=== PATIENT | male | born 1945 | race Caucasian/White ===

== ENCOUNTER → 2018-07-30 | Day surgery (SDC) | payer MEDICARE, OTHER ==
[2018-07-16 13:59] LABS: BASOPHILS % 0.2 % (0.0-1.0); EOSINOPHILS % 0.3 % (0.0-6.0); HEMATOCRIT 36.9 % (38.2-49.6); HEMOGLOBIN 12.3 g/dL (14.0-18.0); LYMPHOCYTES % 21.4 % (18.0-39.1); MEAN CORPUSCULAR HEMOGLOBIN 29.6 pg (28-32); MEAN CORPUSCULAR HGB CONC 33.3 g/dL (31-35); MEAN CORPUSCULAR VOLUME 88.7 fL (81-99); MONOCYTES # (AUTO) 0.6 (0.2-0.8); MONOCYTES % 6.3 % (4.4-11.3); NEUTROPHILS # (AUTO) 6.7 (2.1-6.9); NEUTROPHILS % 71.4 % (38.7-80.0); PLATELET COUNT 446 x10e3/uL (140-360); RED BLOOD COUNT 4.16 x10e6/uL (4.3-5.7); RED CELL DISTRIBUTION WIDTH 12.8 % (11.7-14.4)
[~2018-07-30] MED LIST: AMLODIPINE BESYL5 MG PO; ASPIRIN325 MG PO; CLONAZEPAM1 MG PO; FLOMAX0.4 MG PO; LIDOCAINE HCL 2% LOCAL INJ 5 ML SDV VIAL INJ ONE; MICARDIS80 MG PO; MIDAZOLAM HCL 2 MG/2 ML VIAL ONE; PROPOFOL IV EMULSION 10 MG/ML 50 ML VIAL ONE; SUPERBETA PROSTATE PO; ULTRAM50 MG PO
--- OUTSIDE RECORDS SUMMARY | 2018-07-30 09:48 | XMS REPORT | Clinical Summary ---
Author Author [facility] Organization [facility] Address Unknown Phone Unavailable Care Team Providers Care Neurology Tech Name Role Phone Anali Parker PCP Allergies Comments Active Allergy Reactions Severity Noted Date Per patient: "It makes me crazy. I am okay to take it in the hospital but not at home". Morphine Other (See 05/06/2018 Comments) Medications End Date Status Medication Sig Dispensed Refills Start Date Active amLODIPine (NORVASC) 5 mg nightly. 0 tablet 9 Active clonAZEPAM (KlonoPIN) 2 nightly as 0 MG tablet needed. 9 Active tamsulosin (FLOMAX) 0.4 0 mg capsule 9 Active telmisartan (MICARDIS) 80 telmisartan 0 MG tablet 80 mg tablet Active traMADol 100 mg tramadol ER 0 capsule,ER biphase 24 hr 100 mg 25-75 capsule 24h,extended release(25-75 ) Take 1 capsule twice a day by oral route for 90 days. Active multivitamin (THERAGRAN) Take 1 tablet 0 tablet by mouth daily. Gummie vitamins 07/10/2018 Discontinued naproxen (NAPROSYN) 125 naproxen 0 mg/5 mL suspension TAKE 2 IN AM AND 2 IN PM 07/19/2018 aspirin (ECOTRIN) 325 MG Take 1 tablet 60 tablet 0 enteric coated tablet (325 mg 9 total) by mouth 2 (two) times a day for 30 days. 06/26/2018 HYDROcodone-acetaminophen Take 1 tablet 28 tablet 0 (NORCO) 10-325 mg per by mouth 9 tablet every 6 (six) hours as needed for moderate pain (pain) for up to 7 days. Max Daily Amount: 4 tablets 07/24/2018 HYDROcodone-acetaminophen Take 1 tablet 28 tablet 0 (NORCO) 10-325 mg per by mouth 9 tabletIndications: Status every 6 (six) post total replacement of hours as right hip needed for moderate pain for up to 7 days. Max Daily Amount: 4 tablets Active Problems Problem Noted Date Intertrochanteric fracture of femur, sequela (s/p ORIF x 2) 06/18/2018 Status post total replacement of right hip (conversion ORIF to LENIN - 06/18/2018 Complex) 06/18/18 Mixed hyperlipidemia 03/16/2018 Essential hypertension 03/16/2018 Benign prostatic hyperplasia 03/16/2018 Anxiety 03/16/2018 Adjustment disorder with anxious mood 03/16/2018 Encounters Care Team Description Date Type Specialty Michaela Hobbs, ALEXEY Status post total replacement of right hip (conversion ORIF to LENIN - Complex) 06/18/18 (Primary Dx) 07/16/2018 Refill Orthopedic Surgery Dioni Dior II, MD Status post total replacement of right hip (conversion ORIF to LENIN - Complex) 06/18/18 (Primary Dx); Intertrochanteric fracture of femur, sequela (s/p ORIF x 2); Aftercare following right hip joint replacement surgery 07/10/2018 Office Visit Orthopedic Surgery Dioni Dior II, MD Intertrochanteric fracture of femur, sequela (s/p ORIF x 2) (Primary Dx); Status post total replacement of right hip (conversion ORIF to LENIN - Complex) 06/18/18 06/23/2018 Office Visit Orthopedic Surgery Michaela Hobbs RN 06/23/2018 Telephone Orthopedic Surgery Dioni Dior II, MD REVISION RIGHT TOTAL HIP ARTHROPLASTY POSTERIOR, REMOVAL OF HARDWARE 06/18/2018 Surgery Orthopedic Surgery Sarah Lazo, MARCELLO 06/18/2018 Anesthesia Orthopedic Surgery Event Dioni Dior II, MD Painful orthopaedic hardware (HCC) 06/18/2018 Hospital Orthopedic Surgery - Encounter 06/19/2018 Sarah Lazo, MARCELLO 06/16/2018 Anesthesia Pre-Admission Testing Event Dioni Dior II, MD Preop testing (Primary Dx) 06/02/2018 Pre-Admit Pre-Admission Testing Testing Appointment Dioni Dior II, MD Right hip pain (Primary Dx) 05/06/2018 Lab Lab Dioni Dior II, MD Right hip pain (Primary Dx); Closed 2-part intertrochanteric fracture of proximal femur, right, sequela; Post-traumatic osteoarthritis of right hip 05/06/2018 Office Visit Orthopedic Surgery after 07/29/2017 Family History Medical History Relation Name Comments Cancer Father Diabetes Mother Relation Name Status Comments Father Mother Social History Date Tobacco Use Types Packs/Day Years Used Former Smoker Cigarettes, 1 3 Cigars Smokeless Tobacco: Former User Comments: Quit cigarettes 1974, quit cigars 1993. Alcohol Use Drinks/Week oz/Week Comments Yes 1 Standard 0.6 drinks or equivalent Alcohol Habits Answer Date Recorded How often do you have a drink containing alcohol? Never 05/06/2018 How many drinks containing alcohol do you have on Not asked a typical day when you are drinking? How often do you have six or more drinks on one Not asked occasion? Sex Assigned at Date Recorded Not on file Industry Job Start Date Occupation Not on file Not on file Not on file Travel End Travel History Travel Start No recent travel history available. Last Filed Vital Signs Time Taken Vital Sign Reading 06/19/2018 11:44 AM CDT Blood Pressure 122/67 06/19/2018 11:44 AM CDT Pulse 85 06/19/2018 11:44 AM CDT Temperature 37.1 C (98.7 F) 06/19/2018 11:44 AM CDT Respiratory Rate 18 06/19/2018 11:44 AM CDT Oxygen Saturation 95% - Inhaled Oxygen - Concentration 06/18/2018 9:00 PM CDT Weight 95.3 kg (210 lb) 06/18/2018 9:00 PM CDT Height 182.9 cm (6') 06/18/2018 9:00 PM CDT Body Mass Index 28.48 Plan of Treatment Care Team Description Date Type Specialty Barby, Dioni Madison II, MD [address] [facility] [address] [place] [address] 08/10/2018 Office Visit Orthopedic Surgery Health Maintenance Due Date Last Done Comments COLON CANCER SCREENING 1996 SHINGLES VACCINES (#1) 1996 65+ PNEUMOCOCCAL VACCINE 11/24/2011 (1 of 2 - PCV13) PNEUMOCOCCAL 11/24/2011 POLYSACCHARIDE VACCINE AGE 65 AND OVER INFLUENZA VACCINE 10/01/2018 Implants Device Identifier Shelf Expiration Date Model / Serial / Lot Implanted Type Area Manufactur er 04/02/2028 [id number] / / [id number] Shell Actblr Sector Series W/ Hip Joint Right: Hip DEPUY Gripton 56mm [place] - [id number] Implants ORTHO-KNEE Implanted: Qty: 1 on 06/18/2018 by Dioni Greco II, MD 01/30/2021 [id number] / / [id number] Head Fml Neck 02/13 Tprd Mtl 36mm Hip Joint Right: Hip DEPUY -2 Articul/Smith Ultamet - [id number] Implants ORTHO Implanted: Qty: 1 on 06/18/2018 by Dioni Dior II, MD 05/01/2023 [id number] / / [id number] Altrx Neut [id number] - [id number] IPM Right: Hip DEPUY Implanted: Qty: 1 on 06/18/2018 by IMPLANT ORTHOPAEDI Dioni Dior II, MD DEVICES 36Kr, [employer] 10/31/2018 [id number] / / [id number] Corail Revision Stem Std 12 - IPM Right: Hip DEPUY [id number] IMPLANT ORTHOPAEDI Implanted: Qty: 1 on 06/18/2018 by [employer] Dioni Dior II, MD Procedures Comments Procedure Name Priority Date/Time Associated Diagnosis XR HIP 2-3 VIEWS RIGHT Routine 07/10/2018 Status post total 12:08 PM CDT replacement of right hip Intertrochanteric fracture of femur, sequela Aftercare following right hip joint replacement surgery XR HIP 2-3 VIEWS RIGHT Routine 06/23/2018 Intertrochanteric 1:37 PM CDT fracture of femur, sequela Status post total replacement of right hip HEMOGLOBIN & HEMATOCRIT Routine 06/19/2018 8:16 AM CDT ESTIMATED GFR Routine 06/19/2018 4:00 AM CDT BASIC METABOLIC PANEL Routine 06/19/2018 4:00 AM CDT XR PELVIS 1 OR 2 VW Routine 06/18/2018 4:37 PM CDT POC GLUCOSE Routine 06/18/2018 4:09 PM CDT SURGICAL PATHOLOGY Routine 06/18/2018 REQUEST 3:31 PM CDT XR PELVIS 1 OR 2 VW Routine 06/18/2018 3:00 PM CDT XR PELVIS 1 OR 2 VW Routine 06/18/2018 2:45 PM CDT AFB STAIN Timed 06/18/2018 1:30 PM CDT GRAM STAIN Timed 06/18/2018 1:30 PM CDT FUNGUS SMEAR Timed 06/18/2018 1:30 PM CDT AFB CULTURE Timed 06/18/2018 Painful orthopaedic 1:30 PM CDT hardware (HCC) AEROBIC CULTURE Timed 06/18/2018 Painful orthopaedic 1:30 PM CDT hardware (HCC) FUNGUS CULTURE Timed 06/18/2018 Painful orthopaedic 1:30 PM CDT hardware (HCC) ANAEROBIC CULTURE Timed 06/18/2018 Painful orthopaedic 1:30 PM CDT hardware (HCC) AFB STAIN Timed 06/18/2018 1:03 PM CDT GRAM STAIN Timed 06/18/2018 1:03 PM CDT FUNGUS SMEAR Timed 06/18/2018 1:03 PM CDT AFB CULTURE Timed 06/18/2018 Painful orthopaedic 1:03 PM CDT hardware (HCC) AEROBIC CULTURE Timed 06/18/2018 Painful orthopaedic 1:03 PM CDT hardware (HCC) FUNGUS CULTURE Timed 06/18/2018 Painful orthopaedic 1:03 PM CDT hardware (HCC) ANAEROBIC CULTURE Timed 06/18/2018 Painful orthopaedic 1:03 PM CDT hardware (HCC) SC AN ELECTIVE Routine 06/18/2018 ENDOTRACHEAL AIRWAY 12:31 PM CDT Procedure Note - Akua Colin CRNA - 06/18/2018 12:31 PM CDT Airway Date/Time: 06/18/2018 12:32 PM Performed by: Akua Colin CRNA Authorized by: Briana Black MD Location: OR Urgency: Elective Difficult Airway: No Preoxygena maricruz with 100% O2: Yes C-spine Precaution s Maintained Throughout : Yes Mask Ventilatio n: Easy mask Final Airway Type: Endotrache al airway Final Endotrache al Airway: ETT Cuffed: Yes Technique Used: Video laryngosco py Devices/Me thods Used in Placement: Intubatin g stylet Insertion Site: Oral Blade Type: Evelin Laryngosco pe Blade/Vide olaryngosc ope Blade Size: 3 ETT Size (mm): 8.0 Cuff at minimum occlusion pressure: Yes Measured from: Teeth ETT to Teeth (cm): 24 Placement Verified by: CO2 detection, direct visualizat ion and equal breath sounds Laryngosco pic view: Grade I - full view of glottis Rapid Sequence Induction (RSI): No Modified RSI: No Number of Attempts at Approach: 1 EASY. ATRAUMATIC EASY GLIDSCOPE REVISION, ARTHROPLASTY, 06/18/2018 Painful orthopaedic HIP 12:30 PM CDT hardware (HCC) Case Notes @0860 VIA EMAIL/ANTOINETTE E R/S FROM 06/04 TO 06/18- 03/21TW Special Needs EST 2HRS, DEPUY POC GLUCOSE Routine 06/18/2018 8:21 AM CDT URINALYSIS SCREEN AND Routine 06/02/2018 Preop testing MICROSCOPY, WITH REFLEX 2:35 PM CDT TO CULTURE URINE CULTURE Routine 06/02/2018 2:35 PM CDT TYPE AND SCREEN Routine 06/02/2018 Preop testing 1:45 PM CDT ESTIMATED GFR Routine 06/02/2018 1:42 PM CDT HEMOGLOBIN A1C Routine 06/02/2018 Preop testing 1:42 PM CDT CBC HEMOGRAM Routine 06/02/2018 Preop testing 1:42 PM CDT COMPREHENSIVE METABOLIC Routine 06/02/2018 Preop testing PANEL 1:42 PM CDT SEDIMENTATION RATE Routine 05/06/2018 Right hip pain 4:10 PM CHEF MANAGER C-REACTIVE PROTEIN Routine 05/06/2018 Right hip pain 4:10 PM CHEF MANAGER XR HIP 2-3 VIEWS RIGHT Routine 05/06/2018 Right hip pain 2:53 PM CHEF MANAGER after 07/29/2017 Results * XR Hip 2-3 View Right (07/10/2018 12:08 PM CDT) Only the most recent of 3 results within the time period is included. Specimen Narrative Performed At This [facility] has an attachment that is not available. [facility] Revision lenin in unchanged position. Performing Organization Address [facility] Phone Number [facility] [address] [place] [address] * Hemoglobin & hematocrit (06/19/2018 8:16 AM CDT) [facility] HGB 12.2 (L) 14.0 - 18.0 g/dL [facility] HCT 37.0 (L) 41.0 - 51.0 % [facility] Specimen Blood Performing Organization Address [facility] Phone Number [facility] DEPARTMENT OF [address] [place] [id number] PATHOLOGY AND GENOMIC MEDICINE [address] * Estimated GFR (06/19/2018 4:00 AM CDT) Only the most recent of 2 results within the time period is included. [facility] Estimated GFR >=90 mL/min/1.73 m2 LYLES Comment: [facility] rpretation G1 >=90 Normal or high G2 60-89Mildly decreased A6c34-14 Mildly to moderately decreased D1p58-71 Moderately to severely decreased G4 15-29Severely decreased G5 <15Kidney failure The eGFR was calculated using the Chronic Kidney Disease Epidemiology Collaboration (CKD-EPI) equation. Interpretation is based on recommendations of the National Kidney Foundation-Kidney Disease Outcomes Quality Initiative (NKF-KDOQI) published in 2014. Specimen Plasma specimen Performing Organization Address City/[facility] Phone Number [facility] DEPARTMENT OF [address] [place] [address] PATHOLOGY AND GENOMIC MEDICINE [address] * Basic metabolic panel (06/19/2018 4:00 AM CDT) Sodium 136 135 - 148 mEq/L [facility] Potassium 4.5 3.5 - 5.0 mEq/L [facility] Chloride 100 98 - 112 mEq/L [facility] CO2 22 (L) 24 - 31 mEq/L [facility] Anion gap 14@ANIO 7 - 15 mEq/L [facility] BUN 12 8 - 23 mg/dL [facility] Creatinine 0.76 0.70 - 1.20 mg/dL [facility] Glucose 109 (H) 65 - 99 mg/dL [facility] Calcium 8.7 (L) 8.8 - 10.2 mg/dL [facility] Specimen Plasma specimen Performing Organization Address City/[facility] Phone Number [facility] DEPARTMENT OF [address] [place] [address] PATHOLOGY AND GENOMIC MEDICINE [address] * XR Pelvis 1 Or 2 Vw (06/18/2018 4:37 PM CDT) Only the most recent of 3 results within the time period is included. Specimen Narrative Performed At EXAMINATION:XR PELVIS 1 OR 2 [facility]W [facility] CL[facility]:Post operative COMPARISON:None. IMPRESSION: Patient is status post right hip arthroplasty. Hardware intact. The appearance of the lesser trochanter is unchanged from May 06, 2018 Expected postoperative changes in the soft tissues. [facility]-[id number] Procedure Note Interface, Radiology Results Incoming - 06/18/2018 5:05 PM CDT EXAMINATION: XR PELVIS 1 OR 2 VW CLINICAL HISTORY: Post operative COMPARISON: None. IMPRESSION: Patient is status post right hip arthroplasty. Hardware intact. The appearance of the lesser trochanter is unchanged from May 06, 2018 Expected postoperative changes in the soft tissues. [facility]-[id number] Performing Organization Address City/State/[place] [address] * POC glucose (06/18/2018 4:09 PM CDT) Only the most recent of 2 results within the time period is included. POC glucose 112 (H) 65 - 99 mg/dL LYLES Comment: [facility] Notified RN HOSPITAL Meter ID: [id number] Wheel Roller: Joe Sebastian Specimen Performing Organization Address City/[facility]/Zipcode Phone Number [facility] DEPARTMENT OF [address] [place] [address] PATHOLOGY AND GENOMIC MEDICINE [place] [facility] * Surgical pathology request (06/18/2018 3:31 PM CDT) [facility] DEPARTMENT OF PATHOLOGY AND GENOMIC MEDICINE Surgical See link below for PDF Lab [facility] DEPARTMENT pathology Report OF PATHOLOGY report AND GENOMIC MEDICINE Result status This is Final Report for [facility] DEPARTMENT [id number] OF PATHOLOGY AND GENOMIC MEDICINE Specimen Performing Organization Address City/[facility] Phone Number [facility] DEPARTMENT OF [address] [place] [address] PATHOLOGY AND GENOMIC MEDICINE * Fungus smear (06/18/2018 1:30 PM CDT) Only the most recent of 2 results within the time period is included. Fungus smear No fungi observed. LYLES Comment: [facility] Specimen Information HOSPITAL Specimen Source: Fluid Specimen Site: Hip Specimen Hip Performing Organization Address City/[facility] Phone Number [facility] DEPARTMENT OF [address] [place] [address] PATHOLOGY AND GENOMIC MEDICINE [place] [facility] [address] [place] [address] HOSPITAL * Aerobic culture (06/18/2018 1:30 PM CDT) Only the most recent of 2 results within the time period is included. Aerobic culture No growth after 72 hours LYLES isolate Comment: [facility] Specimen Information HOSPITAL Specimen Source: Fluid Specimen Site: Hip Specimen Fluid - Hip Performing Organization Address City/[facility]/Zipcode Phone Number [facility] DEPARTMENT OF [address] [place] [address] PATHOLOGY AND GENOMIC MEDICINE [place] [address] HOSPITAL * Gram stain (06/18/2018 1:30 PM CDT) Only the most recent of 2 results within the time period is included. Gram stain Moderate WBC's LYLES isolate No organisms seen [facility] Comment: HOSPITAL Specimen Information Specimen Source: Fluid Specimen Site: Hip Specimen Hip Performing Organization Address City/[facility]/Zipcode Phone Number [facility] DEPARTMENT OF [address] [place] [address] PATHOLOGY AND GENOMIC MEDICINE [address] * AFB stain (06/18/2018 1:30 PM CDT) Only the most recent of 2 results within the time period is included. Pathologist [facility] AFB stain No acid fast bacilli (AFB) LYLES seen. [facility] Comment: HOSPITAL Specimen Information Specimen Source: Fluid Specimen Site: Hip Specimen Hip Performing Organization Address [facility] Phone Number [facility] [place] [address] PATHOLOGY AND GENOMIC MEDICINE [address] * Fungus culture (06/18/2018 1:30 PM CDT) Only the most recent of 2 results within the time period is included. Pathologist [facility] Fungus culture No growth after 4 weeks of LYLES isolate incubation. [facility] Comment: HOSPITAL Specimen Information Specimen Source: Fluid Specimen Site: Hip Specimen Fluid - Hip Performing Organization Address [facility] Phone Number [facility] [place] [address] PATHOLOGY AND GENOMIC MEDICINE [address] * Anaerobic culture (06/18/2018 1:30 PM CDT) Only the most recent of 2 results within the time period is included. Pathologist [facility] Anaerobic No anaerobic organisms LYLES culture isolate isolated. [facility] Comment: HOSPITAL Specimen Information Specimen Source: Fluid Specimen Site: Hip Specimen Fluid - Hip Performing Organization Address [facility] Phone Number [facility] [place] [address] PATHOLOGY AND GENOMIC MEDICINE [address] * Urinalysis screen and microscopy, with reflex to culture (06/02/2018 2:35 PM CDT) Specimen site Clean catch [facility] Color, UA Yellow [facility] Appearance, UA Clear [facility] Specific 1.027 1.001 - 1.035 LYLES gravity, [facility] pH, UA 6.0 5.0 - 8.5 [facility] Protein, UA Negative Negative [facility] Glucose, UA Negative Negative [facility] Ketones, UA Negative Negative [facility] Bilirubin, UA Negative Negative [facility] Blood, UA Negative Negative [facility] Nitrite, UA Negative Negative [facility] Urobilinogen, Footnote <2.0 LYLES UA Comment: [facility] UNABLE TO REPORT HOSPITAL Corrected result; previously reported as 2.0 on 06/02/2018 at 17:31 by I/AUT Leukocyte Negative Negative LYLES esterase, UA [facility] WBC, UA None seen 0 - 1 /HPF [facility] RBC, UA 3 0 - 5 /HPF [facility] Bacteria, UA Few None seen [facility] Yeast, UA None seen [facility] Yeast with None seen [facility] Specimen Urine Performing Organization Address City/[facility] Phone Number [facility] [place] [address] PATHOLOGY AND GENOMIC MEDICINE [address] * Urine culture (06/02/2018 2:35 PM CDT) Pathologist [facility] Urine culture SEE COMMENTComment: LYLES Bacteriuria screen negative. [facility] Specimen Performing Organization Address City/[facility] Phone Number [facility] [place] [address] PATHOLOGY AND GENOMIC MEDICINE [address] * Type and screen (06/02/2018 1:45 PM CDT) ABO grouping O [facility] Rh type POS [facility] Antibody screen NEG LYLES (gel) [facility] Specimen Blood Performing Organization Address [facility] Phone Number [facility] [place] [address] PATHOLOGY AND GENOMIC MEDICINE [address] * CBC hemogram (06/02/2018 1:42 PM CDT) WBC 12.05 (H) 4.50 - 11.00 k/uL [facility] RBC 5.12 4.40 - 6.00 m/uL [facility] HGB 15.5 14.0 - 18.0 g/dL [facility] HCT 47.4 41.0 - 51.0 % [facility] MCV 92.6 82.0 - 100.0 fL [facility] MCH 30.3 27.0 - 34.0 pg [facility] MCHC 32.7 31.0 - 37.0 g/dL [facility] RDW - SD 44.2 37.0 - 55.0 fL [facility] MPV 9.6 8.8 - 13.2 fL [facility] Platelet count 322 150 - 400 k/uL [facility] Nucleated RBC 0.00 /100 WBC [facility] Specimen Blood Performing Organization Address City/[facility]/Zipcode Phone Number [facility] DEPARTMENT OF [address] [place] [address] PATHOLOGY AND GENOMIC MEDICINE [address] * Hemoglobin A1c (06/02/2018 1:42 PM CDT) Hemoglobin A1C 5.6 4.0 - 5.6 % LYLES Comment: [facility] HbA1c cutoffs for diagnosing HOSPITAL diabetes: 4.0% - 5.6%=normal 5.7% - 6.4%=increased risk for diabetes (prediabetes) >=6.5%=diabetes Goals for glycemic control (ADA 2016) < 7.0%Target for non adults with diabetes. More or less stringent targets may be appropriate for individual patients. <7.5% Target for Children and adolescents with type 1 diabetes. Specimen Blood Performing Organization Address City/State/Zipcode Phone Number [facility] DEPARTMENT OF [address] [place] [address] PATHOLOGY AND GENOMIC MEDICINE [address] * Comprehensive metabolic panel (06/02/2018 1:42 PM CDT) Sodium 138 135 - 148 mEq/L [facility] Potassium 4.9 3.5 - 5.0 mEq/L [facility] Chloride 98 98 - 112 mEq/L [facility] CO2 26 24 - 31 mEq/L [facility] Anion gap 14@ANIO 7 - 15 mEq/L [facility] BUN 27 (H) 8 - 23 mg/dL [facility] Creatinine 0.97 0.70 - 1.20 mg/dL [facility] Glucose 88 65 - 99 mg/dL [facility] Calcium 9.3 8.8 - 10.2 mg/dL [facility] Protein 7.3 6.3 - 8.3 g/dL LYLES Comment: [facility] 4.6-7.0 g/dL 1 week 4.4-7.6 g/dL 7 months-1year 5.1-7.3 g/dL 1-2 years5.6-7 .5 g/dL >3 years6.0-8 .0 g/dL 18-150 6.3-8.3 g/dL Albumin 3.8 3.5 - 5.0 g/dL [facility] A/G ratio 1.1 0.7 - 3.8 [facility] Alkaline 106 40 - 129 U/L [place] phosphatase [facility] AST 13 10 - 50 U/L [facility] [facility] [place] ALT 19 5 - 50 U/L [facility] Total bilirubin 0.5 0.0 - 1.2 mg/dL [facility] Specimen Plasma specimen Performing Organization Address City/[facility] Phone Number [facility] [place] [address] PATHOLOGY AND GENOMIC MEDICINE [address] * Sedimentation rate (05/06/2018 4:10 PM CHEF MANAGER) Sedimentation 11 (H) 0 - 10 mm/hr [facility] Specimen Blood Performing Organization Address City/[facility] Phone Number [facility] [place] [address] PATHOLOGY AND GENOMIC MEDICINE [address] * C-reactive protein (05/06/2018 4:10 PM CHEF MANAGER) CRP 0.36 0.00 - 0.50 mg/dL [facility] Specimen Plasma specimen Performing Organization Address [facility] Phone Number [facility] [place] [address] PATHOLOGY AND GENOMIC MEDICINE [address] after 07/29/2017 Insurance Type Payer Benefit Subscriber ID Effective Phone Address Plan / Dates Group Medicare MEDICARE MEDICARE xxxxxxxxxxx 2011-P WILLIE, PART A AND resent [place] B [employer] xxxxxxxxxx 2018-P MUTUAL resent Advance Directives Patient has advance care planning documents on file. For more information, luz conner contact: Willie Watts [phone] [place] [address]
[2018-07-30 14:18] VITALS: BP 116/91
== END | disposition home or self-care (01) ==
LOC: OR 09:43
PROVIDERS: ATTEND Internal Medicine
DX: Z12.11 Encounter for screening for malignant neoplasm of colon (principal); D12.3 Benign neoplasm of transverse colon; D12.5 Benign neoplasm of sigmoid colon; R06.83 Snoring; I10 Essential (primary) hypertension; Z01.810 Encounter for preprocedural cardiovascular examination; Z01.812 Encounter for preprocedural laboratory examination; Z79.82 Long term (current) use of aspirin
CPT/HCPCS: 36415; 45380; 45381; 45385; 85025; 88305; 93005; J2001; J2250; J2704